=== PATIENT | female | born 1965 | race Caucasian/White ===

== ENCOUNTER 2017-10-24 12:38 | Emergency (ER) | payer OTHER ==
[~2017-10-24] VITALS: Ht 175.3 cm; Wt 73.7 kg
[2017-10-24 14:20] LABS: HEMATOCRIT 45.5 % (36.0-46.0); HEMOGLOBIN 15.7 G/DL (11.9-15.5); MCH 31.7 PG (29.0-34.0); MCHC 34.5 G/DL (30.0-36.0); MCV 91.7 FL (83-99); PLATELET COUNT 272 K/uL (156-360); RBC DIS.WIDTH-CV 12.3 % (11.8-14.6); RBC DIS.WIDTH-SD 41.1 % (39-53); RED BLOOD COUNT 4.96 M/uL (3.80-5.20); WHITE BLOOD COUNT 5.6 K/uL (4.1-10.2)
[2017-10-24 14:29] LABS: ALBUMIN 4.6 g/dL (3.2-4.8); CHLORIDE 103 mEq/L (99-109); SODIUM 140 mEq/L (136-147)
[2017-10-24 14:32] LABS: GLUCOSE 80 mg/dL (70-99); TOTAL PROTEIN 8.1 g/dL (6.4-8.3)
[2017-10-24 14:34] LABS: TOTAL BILIRUBIN 0.4 mg/dL (0.0-1.0)
[2017-10-24 14:35] LABS: ALKALINE PHOSPHATASE 76 IU/L (3-129); CREATININE 0.8 mg/dL (0.6-1.3); GFR ESTIMATE (CALCULATED) > 59 mL/min/
[2017-10-24 14:36] LABS: UREA NITROGEN (BUN) 14 mg/dL (9-23)
[2017-10-24 14:37] LABS: AST (GOT) 19 IU/L (2-34)
[2017-10-24 14:38] LABS: ALT (GPT) 24 IU/L (3-49)
[2017-10-24 14:39] LABS: LIPASE 21 U/L (1.0-51.0)
[2017-10-24 14:44] LABS: QUANTITATIVE HCG < 4.0 MIU/ML
[2017-10-24 14:51] VITALS: BP 177/102
[2017-10-24 16:07] LABS: APPEARANCE CLEAR ((CLEAR)); BILIRUBIN NEGATIVE; BLOOD SMALL; COLOR STRAW ((YELLOW)); GLUCOSE (STRIP) NEGATIVE; KETONES NEGATIVE; LEUKOCYTES SMALL; NITRITE NEGATIVE; PROTEIN (STRIP) NEGATIVE; SPECIFIC GRAVITY 1.006 (1.000-1.030); UROBILINOGEN 0.2 MG/DL (0.2-1.0)
[2017-10-24 16:14] LABS: BACTERIA NONE SEEN /HPF; EPITHELIAL CELLS RARE /HPF; MUCUS NONE SEEN /LPF; RED BLOOD CELLS 0-5 /HPF (0-5); UCUL ADDED? NO; WHITE BLOOD CELLS 0-5 /HPF (0-5)
[2017-10-24] MEDS ORDERED: CARAFATE1 GM PO (17:23)
== END 2017-10-24 19:04 | disposition home or self-care (01) ==
LOC: EME 12:38
DX: R10.11 Right upper quadrant pain (principal); Z88.2 Allergy status to sulfonamides
CPT/HCPCS: 76705; 80053; 81003; 83690; 84702; 85027; 93005; 99281; 99283

== ENCOUNTER → 2017-12-02 | Outpatient (CLI) | payer OTHER ==
[~2017-12-02] MED LIST: CARAFATE1 GM PO
== END | disposition home or self-care (01) ==
LOC: NUC 08:31
DX: R11.0 Nausea (principal); R19.7 Diarrhea, unspecified
CPT/HCPCS: 78227; A9537; J2805